=== PATIENT | female | born 1975 | race Two or more races ===

== ENCOUNTER 2018-01-24 07:55 | Observation (INO) | payer OTHER ==
[2018-01-24] MEDS ORDERED: BUPIVACAINE 0.5% 30 ML SDV ONE (08:07)
[2018-01-24] MEDS ORDERED: LR 1,000 ML IV ONE (08:15)
[2018-01-24] MEDS ORDERED: LIDOCAINE 1% 2 ML INJ ID PRN (08:15)
[2018-01-24] MEDS ORDERED: ceFAZolin 2 GM/DEXTROSE 100 ML IV ONE (08:15)
[2018-01-24] MEDS ORDERED: oxyCODONE IR 5 MG TAB PO PRN (08:48)
[2018-01-24] MEDS ORDERED: MIDAZOLAM 2 MG/2 ML VIAL IVP ONE (08:48)
[2018-01-24] MEDS ORDERED: ACETAMINOPHEN 500 MG TAB PO PRN (08:48)
[2018-01-24] MEDS ORDERED: ALBUTEROL 3 ML DEYVIAL IH PRN (08:48)
[2018-01-24] MEDS ORDERED: HYDROCODONE/APAP 5/325 TAB PO PRN (08:48)
[2018-01-24] MEDS ORDERED: DEXAMETHASONE 4 MG/ML VIAL IVP PRN (08:48)
[2018-01-24] MEDS ORDERED: NALOXONE HCL 0.4 MG/ML INJ IVP PRN (08:48)
--- NOTE | 2018-01-24 08:49 | PDANEPAE ---
ANE History of Present Illness Hysterectomy ANE Past Medical History - Cardiovascular History Hx Hypertension: No Hx Arrhythmias: No Hx Chest Pain: No Hx Coronary Artery / Peripheral Vascular Disease: No Hx CHF / Valvular Disease: No Hx Palpitations: No Cardiovascular History Comment: hx of heart murmur as child, has been told it has gone away - Pulmonary History Hx COPD: No Hx Asthma/Reactive Airway Disease: No Hx Recent Upper Respiratory Infection: No Hx Oxygen in Use at Home: No Hx Sleep Apnea: No Sleep Apnea Screening Result - Last Documented: Negative - Neurologic History Hx Cerebrovascular Accident: No Hx Seizures: No Hx Dementia: No - Endocrine History Hx Diabetes: No - Renal History Hx Renal Disorders: No - Liver History Hx Hepatic Disorders: No - Neurological & Psychiatric Hx Hx Neurological and Psychiatric Disorders: Yes Neurological / Psychiatric History Comment: anxiety - Cancer History Hx Cancer: No - Congenital Disorder History Hx Congenital Disorders: No - GI History Hx Gastrointestinal Disorders: No - Other Health History Other Health History: none - Chronic Pain History Chronic Pain: Yes (abd and back pain) - Surgical History Prior Surgeries: myomectomy 2014. lap appy 2011. endometriosis removed 2009 ANE Review of Systems Review of Systems: - Exercise capacity METS (RN): 5 METS ANE Patient History - Allergies Allergies/Adverse Reactions: No Known Allergies Allergy (Verified 01/19/18 16:41) - Home Medications Home Medications: Herbals/Supplements -Info Only 1 ea PO DAILY 01/17/18 [Last Taken 01/23/18] Multivitamins [Multivitamin (*)] 1 each PO DAILY 01/17/18 [Last Taken 01/23/18] [place]-3 Fatty Acids [Fish Oil 1000 mg (*)] 1,000 mg PO DAILY 01/17/18 [Last Taken 01/23/18] buPROPion SR [Wellbutrin 150mg SR (*)] 150 mg PO BID 01/17/18 [Last Taken ] - NPO status NPO Since - Liquids (Date): 01/24/18 NPO Since - Liquids (Time): 06:00 NPO Since - Solids (Date): 01/23/18 NPO Since - Solids (Time): 20:30 - Smoking Hx Smoking Status: Never smoked - Family Anes Hx Family Hx Anesthesia Complications: none ANE Labs/Vital Signs - Vital Signs Blood Pressure: 122/84 Heart Rate: 57 Respiratory Rate: 15 O2 Sat (%): 97 Height: 170.4 cm Weight: 67.7 kg ANE Physical Exam - Airway Neck exam: FROM Mallampati Score: Class 2 Mouth exam: normal dental/mouth exam - Pulmonary Pulmonary: clear to auscultation - Cardiovascular Cardiovascular: regular rate and rhythym - ASA Status ASA Status: II ANE Anesthesia Plan Anesthesia Plan: general endotracheal anesthesia
[2018-01-24] MEDS ORDERED: MIDAZOLAM 2 MG/2 ML VIAL ONE (08:50)
[2018-01-24] MEDS ORDERED: PROPOFOL 200 MG/20 ML VIAL ONE (08:51)
[2018-01-24] MEDS ORDERED: fentaNYL 250 MCG/5 ML INJ ONE (08:51)
[2018-01-24] MEDS ORDERED: ROCURONIUM 50 MG/5 ML VIAL ONE ×2 (08:52→10:15)
[2018-01-24] MEDS ORDERED: ONDANSETRON 4 MG/2 ML VIAL ONE ×3 (08:54→11:55)
[2018-01-24] MEDS ORDERED: DEXAMETHASONE 4 MG/ML VIAL ONE ×2 (08:54)
--- NOTE | 2018-01-24 09:20 | PDGENHP ---
History & Physical Chief Complaint: chronic pelvic pain and menorrhagia History of Present Illness: several year history of heavy painful periods. history of menorrhagia. hx of myomectomy in 2014. symptoms returned. no plans to have kids. requests difinitive therapy with hysterectomy. Pertinent Past, Social, Family History: hx myometctomy. hx anxiety. Relevant Physical Exam: mobile uterus Cardiorespiratory Assessment: regular heart rate. lungs clear
--- NOTE | 2018-01-24 09:46 | GHP ---
DATE OF ADMISSION: 01/24/2018 DATE OF SURGERY: 01/24/2018. PREOPERATIVE DIAGNOSIS: Chronic pelvic pain and menorrhagia. INDICATIONS FOR SURGERY: Patient is a 42-year-old, 1, para 0-0-1-0, who has a several year history of significant midcycle pain and very heavy periods. She underwent an abdominal open myomectomy in 2014 for symptomatic fibroids. At that time, she wanted a hysterectomy. However, the provider talked her out of it because she had not had children yet, and the patient initially did a little bit better following the surgery. However, she has had persistent significantly worsening midcycle pain and heavier periods. She had a repeat ultrasound performed on 01/01/2018, which showed a uterus measuring 9 x 5 x 7 cm with a homogeneous endometrium and a 0.7 x 0.9 x 0.6 intramural fibroid and a second 1.5 x 1.3 x 0.7 cm intramural fibroid. Ovaries were overall unremarkable. Management options were reviewed extensively with the patient. Patient is requesting definitive therapy as she does not want to have any children. We are planning to proceed with a total laparoscopic hysterectomy with bilateral salpingectomy. Risks and benefits of the procedure have been extensively reviewed with the patient including the possibility of needing to open and perform an open procedure. The patient has been properly consented. MEDICAL HISTORY: History of fibroid uterus, menorrhagia, anxiety, depression, endometriosis, and infertility. MEDICATIONS: Wellbutrin. SURGICAL HISTORY: Cold knife conization or LEEP of cervix, diagnostic laparoscopy x 2 for endometriosis, laparoscopic appendectomy and open myomectomy. ALLERGIES: No known drug allergies. SOCIAL HISTORY: The patient is in a long-term relationship. She denies tobacco , alcohol, or drug use. FAMILY MEDICAL HISTORY: Noncontributory. COMPUTER NETWORK SPECIALIST HISTORY: Menarche age 17. Periods every 28 days lasting 5-7 days. They are very heavy and painful. She is a 1, para 0-0-1-0. She has had 1 spontaneous in 2009. She has a remote history of abnormal Pap smear and had cryosurgery. Repeat Pap smears have all been negative. She denies any history of any sexually-transmitted diseases. REVIEW OF SYSTEMS: 10-point review of systems is negative with the exception of the above-mentioned pertinent positives. She has monthly painful periods and heavy painful periods. PHYSICAL EXAMINATION: VITAL SIGNS: Stable. GENERAL APPEARANCE: Alert and oriented x3. PSYCH: Appropriate affect. MUSCULOSKELETAL: Grossly intact. NEURO: Grossly intact. NECK: Mobile and supple. HEART: Rate is regular. LUNGS: Clear to auscultation bilaterally. ABDOMEN: Soft, nondistended, nontender. EXTREMITIES: Reveal no calf tenderness or edema. PELVIC: Reveals a mobile, midposition uterus with no adnexal masses. IMAGING: Pelvic ultrasound as described above. Endometrial biopsy was performed and which was benign. ASSESSMENT/PLAN: 42-year-old, 1, para 0-0-1-0 with chronic pelvic pain and menorrhagia requesting definitive therapy with a total laparoscopic hysterectomy with bilateral salpingectomy. Risks and benefits have been extensively reviewed with the patient. Patient has been properly consented. /[id number]/MODL MTDD
[2018-01-24] MEDS ORDERED: KETOROLAC 30 MG/1 ML SDV ONE (11:15)
--- NOTE | 2018-01-24 11:41 | POSTANESTH ---
Post Anesthetic Evaluation Cardiovascular Status: Normal, Stable Respiratory Status: Normal, Stable Level of Consciousness/Mental Status: Can Participate in Eval, Alert and Oriented Pain Control: Adequate, Prn Tx Ordered Nausea/Vomiting Control: Adequate, Prn Tx Ordered Complications Possibly Related to Anesthesia: None Noted
[2018-01-24] MEDS ORDERED: HYDROmorphONE/DILAUDID 1 MG/ML INJ ONE ×3 (11:44→13:32)
[2018-01-24] MEDS ORDERED: fentaNYL 100 MCG/2 ML INJ ONE (11:44)
[2018-01-24] MEDS: ONDANSETRON 4 MG/2 ML VIAL IVP PRN ×2 (11:49→12:09)
[2018-01-24] MEDS: fentaNYL 100 MCG/2 ML INJ IVP PRN ×2 (11:51→12:06)
[2018-01-24] MEDS: HYDROmorphONE/DILAUDID 1 MG/ML INJ IVP PRN ×7 (11:56→13:32)
[2018-01-24] MEDS ORDERED: POLYETHYLENE GLYCOL 3350 17 GM PKT PO PRN (12:27)
[2018-01-24] MEDS ORDERED: LACTULOSE 20 GM/30 ML UDCUP PO PRN (12:27)
[2018-01-24] MEDS ORDERED: BISACODYL 10 MG SUPP PR PRN (12:27)
[2018-01-24] MEDS ORDERED: ONDANSETRON 4 MG/2 ML VIAL IVP PRN (12:27)
[2018-01-24] MEDS ORDERED: MAGNESIUM HYDROXIDE 30 ML UDCUP PO PRN (12:27)
[2018-01-24] MEDS ORDERED: LR 1,000 ML IV SCH (12:30)
--- NOTE | 2018-01-24 12:33 | POSTOPPROG ---
Post Op Note Date of Operation: 01/24/18 Surgeon: Jessenia Borrego Auto [employer] Condition[employer] Apprentice: ila dahl Anesthesiologist: marie, Anesthesia: GET(General Endotracheal) Pre-op Diagnosis: chronic pelvic pain, menorrhagia Post-op Diagnosis: same and pre op Procedure: total laparoscopic hysterectomy with bilateral salpingectomy Inf/Abcess present in the surg proc area at time of surgery?: No Depth: Organ Space EBL: Minimal Specimen(s): uterus and tubes
[2018-01-24] MEDS ORDERED: PROMETHAZINE HCL 25 MG/ML INJ ONE (12:35)
[2018-01-24] MEDS: PROMETHAZINE HCL 25 MG/ML INJ IV PRN ×2 (12:38→13:34)
[2018-01-24] MEDS ORDERED: METOCLOPRAMIDE 10 MG/2 ML VIAL ONE (12:41)
[2018-01-24] MEDS ORDERED: METOCLOPRAMIDE 10 MG/2 ML VIAL IV ONE (12:45)
[2018-01-24] MEDS ORDERED: OPIUM/BELLADONNA ALKALO SUPP PR ONE (12:45)
[2018-01-24] MEDS: buPROPion SR 150 MG TAB PO SCH ×2 (17:00→21:22)
[2018-01-24] MEDS: KETOROLAC 30 MG/1 ML SDV IVP SCH ×2 (17:14→23:24)
[2018-01-24] MEDS: HYDROCODONE/APAP 5/325 TAB PO PRN ×2 (17:26→21:20)
[2018-01-24] MEDS: SENNOSIDES/DOCUSATE SODIUM TAB PO SCH (21:22)
[2018-01-25] MEDS: HYDROCODONE/APAP 5/325 TAB PO PRN ×3 (01:39→09:32)
[2018-01-25] MEDS: KETOROLAC 30 MG/1 ML SDV IVP SCH ×2 (05:43→11:57)
[2018-01-25 07:50] VITALS: BP 100/62
[2018-01-25] MEDS: buPROPion SR 150 MG TAB PO SCH (09:20)
[2018-01-25] MEDS: SENNOSIDES/DOCUSATE SODIUM TAB PO SCH (09:33)
--- NOTE | 2018-01-25 10:57 | SOAPPROG ---
SOAP Progress Note Assessment/Plan: Assessment: A/P pod# 1 s/p TLH BS -uncomplicated post operative course - discharge instructions and follow up reviewed - rx ibuprofen and norco - follow up in 2 and 6 weeks 01/25/18 10:53 Subjective: patient is doing great! initially was having post operative nausea and feeling very groggy but was seen last night and was tolerating regular diet and ambulating. moreno was removed last night and patient has been voiding without difficulty. small amount of vaginal bleeding noted. had low back pain over night which was relieved with morphine. doing great this am. pain is well controlled. passing gas. voiding without difficulty. ready to go home. very happy she had the surgery and feels better than she expected. Objective: Vital Signs Temp Pulse Resp BP Pulse Ox 36.8 C 48 L 16 100/62 95 01/25/18 07:48 01/25/18 07:48 01/25/18 07:48 01/25/18 07:48 01/25/18 07:48 Laboratory Results 01/25/18 06:30 01/24/18 01/25/18 01/26/18 05:59 05:59 05:59 Intake Total 2400 Output Total 950 Balance 1450 Physical Exam - Physical Exam General Appearance: WD/WN, alert, no apparent distress Neck: non-tender, full range of motion Respiratory: chest non-tender, lungs clear, normal breath sounds Cardiac/Chest: normal peripheral pulses, regular rate, rhythm Abdomen: normal bowel sounds, non-tender, soft Skin: normal color, warm/dry, other (incisions clean dry and intact) Extremities: normal range of motion, non-tender, normal inspection, normal capillary refill Neuro/Psych: no motor/sensory deficits, alert, normal mood/affect, oriented x 3 ICD10 Worksheet Patient Problems: Problems Problem Status Onset Dysmenorrhea Acute Menorrhagia Acute Menorrhagia Acute
[2018-01-25] MEDS ORDERED: IBUPROFEN 600 MG TAB PO SCH (12:30)
--- NOTE | 2018-01-25 17:32 | GDS ---
ADMISSION DIAGNOSES: 1. Chronic pelvic pain. 2. Menorrhagia. 3. Dysmenorrhea. DISCHARGE DIAGNOSES: 1. Chronic pelvic pain. 2. Menorrhagia. 3. Dysmenorrhea. 4. Status post total laparoscopic hysterectomy with bilateral salpingectomy. HISTORY/HOSPITAL COURSE: Patient is a 42-year-old, 1, para 0-0-1-0, who has a longstanding h istory of chronic pelvic pain and menorrhagia. She underwent an abdominal myomectomy previously, but her symptoms have still persisted. She is requesting definitive therapy. Patient was scheduled for total laparoscopic hysterectomy. The patient underwent a total laparoscopic hysterectomy under gene ral anesthesia on 01/24/2018. Surgery was uncomplicated. Patient's initial postoperative course was complicated by nausea and feeling foggy. However, by the evening she had already gotten up, ambulat ed, was voiding without difficulty, and tolerating a regular diet. Her pain was well controlled. Simone nielsen did receive morphine overnight, but had been receiving oral pain medicines including Toradol and in the morning ibuprofen and Demorest. In the morning the patient was tolerating a regular diet, had minim al vaginal bleeding, was voiding without difficulty, and passing gas. Her pain was well controlled. Patient was discharged to home on postoperative day #1 with prescriptions for Demorest and ibuprofen. She was given 20 Demorest and 30 ibuprofen. The patient was instructed to follow up in the office in 2 weeks and again in 6 weeks, to have nothing in her vagina for 9 weeks, and to not lift anything heavi er than 20 pounds for the next few weeks. Patient was to call if she has any issues. /[id number]/MOD
--- NOTE | 2018-01-25 17:37 | GOP ---
DATE OF OPERATION: 01/24/2018 SURGEON: Jessenia Borrego DO PREOPERATIVE DIAGNOSIS: 1. Chronic pelvic pain. 2. Menorrhagia. 3. Fibroid uterus. 4. Dysmenorrhea. POSTOPERATIVE DIAGNOSIS: 1. Chronic pelvic pain. 2. Menorrhagia. 3. Fibroid uterus. 4. Dysmenorrhea. 5. Endometriosis. PROCEDURE PERFORMED: FINDINGS: INDICATIONS: Patient is a 42-year-old, 1, para 0-0-1-0, who has a longstanding history of he nereyda painful periods. She underwent an abdominal open myomectomy in 2014 for a large symptomatic fibr oid uterus. She wanted to have a hysterectomy at that time, but the provider talked her out of it as she does not have any children. She has a long history of infertility and endometriosis and had pre viously tried to get , but was unsuccessful and the patient had decided she did not want to h ave children. Since that time, her periods had gotten temporarily improved, however, they got progre ssively worse and she has to wear a towel when she has her periods, as well as having midcycle signif icant pain. Pelvic ultrasound was obtained which showed 2 small intramural fibroids and overall uter us was slightly heterogeneous. Management options were reviewed with the patient. Patient elected t o proceed with a total laparoscopic hysterectomy with bilateral salpingectomy. Risks and benefits we re extensively reviewed with the patient and the was properly consented. DESCRIPTION OF PROCEDURE: Patient was taken to the operating room with intravenous fluids in place. She was given 2 g of Ancef intravenously and placed on the operating room table in the dorsal supine position where general anesthesia was obtained. She was then repositioned into the dorsal lithotomy position with the Yellofin stirrups. Venodyne's were on her lower extremities and a Rodriguez catheter was then placed. She was then prepped and draped in the normal sterile fashion. Exam under anesthes ia revealed a mobile, retroverted uterus with no adnexal masses. A speculum was then placed in the p atient's vagina and a tenaculum was used to grasp the anterior lip of the cervix. The cervix was dil ated and sounded to 8 cm. The large RUBEN cup and a 6 mm tip were then assembled and the RUBEN placed without difficulty. Attention was then turned to the patient's abdomen where a 5 mm skin incision wa s then made in the umbilicus after being injected with Marcaine. The 5 mm trocar was then advanced i nto the patient's abdomen under direct visualization with the laparoscope. The area underneath the t rocar insertion site was found to be unremarkable. The abdomen was then insufflated with CO2 gas unt il an adequate pneumoperitoneum was achieved. The patient was then placed in Trendelenburg and a 5 m m trocar was then placed in the patient's right lower quadrant after being injected with Marcaine and incised. The trocar was placed under direct visualization with a laparoscope. A 10 mm trocar was t hen placed in the patient's left lower quadrant under direct visualization. The uterus was visualize d, it was noted to have filmy adhesions, most likely consistent with endometriosis and also looked li ke there was adenomyosis present. Both fallopian tubes were adherent to the uterus in a serpentine m oralia and most likely were the cause of her longstanding infertility. The ovaries were overall unrem arkable. The left round ligament was then clamped, cauterized, and transected with the LigaSure. Th e left utero-ovarian ligament was then clamped, cauterized, and transected. The fallopian tube was d issected off the uterus and transected and withdrawn and handed off as a specimen. The anterior and posterior leaflet of the broad ligament were then clamped, cauterized, and transected. The bladder f lap was created anteriorly. The uterine arteries were skeletonized and clamped, cauterized, and cristina sected. The cup of the pelvis over the RUBEN was easily visualized and the bladder was noted to be fa r away from this site. Attention was then turned to the patient's right side, which also the round l igament was then clamped, cauterized, and transected. The utero-ovarian ligament was clamped, cauter ized, and transected. The anterior and posterior leaflet of the broad ligament were then dissected d own and the uterine arteries were skeletonized, clamped, cauterized, and transected. The bladder fla p was created anteriorly. The bladder was dissected well off the colpotomy site. Prior to any of th gen procedures, the ureters were identified and visualized peristalsing bilaterally. The uterus was elevated and a colpotomy was made with the LigaSure posteriorly and then carried through anteriorly o f the uterus. This was done after the RUBEN balloon was inflated for the pneumoperitoneum. The ballo on was then deflated and the RUBEN and uterus were withdrawn through the vagina and a sponge and a javan ve were inserted into the vagina. Hemostasis was obtained on the vaginal cuff. The V-Loc suture was then introduced and the vaginal cuff was closed in a running fashion. A second V-Loc suture was use d to go back to the midway point taking care to make sure both angles of the cuff were closed. The v aginal cuff was hemostatic. The pelvis was irrigated and cleared of all clots and debris. The pedic les were found to be hemostatic. The ureters were identified and found to be peristalsing again. Ov tricia were unremarkable. The upper abdomen was explored and found to be unremarkable. The 10 mm tro car was then removed from the patient's abdomen and a fascial closure device was inserted and the fas fiorella was closed with an 0 Vicryl stitch. The CO2 gas was expressed from the patient's abdomen and the trocars were removed from the patient's abdomen. The skin was then closed with 4-0 Monocryl in a thakur bcuticular fashion. A speculum exam was performed. There was no bleeding noted in the vagina. The patient was returned to the dorsal supine position where she was easily awoken from anesthesia. Sponge, lap, and needle counts were correct x2. The patient was transported to recovery room in stab le condition. /[id number]/MODL
== END 2018-01-25 12:36 | disposition home or self-care (01) ==
LOC: F3N 07:55 → F3E 10:35 → FOB 14:06
PROVIDERS: ADMIT Obstetrics & Gynecology; ATTEND Obstetrics & Gynecology
PROC: 0UT70ZZ Resection of Bilateral Fallopian Tubes, Open Approach (ICD-10-PCS; principal; 2018-01-24 09:15)
PROC: 0UT90ZZ Resection of Uterus, Open Approach (ICD-10-PCS; principal; 2018-01-24 09:15)
DX: R10.2 Pelvic and perineal pain (principal); N92.0 Excessive and frequent menstruation with regular cycle; D25.1 Intramural leiomyoma of uterus; N94.6 Dysmenorrhea, unspecified; F41.9 Anxiety disorder, unspecified
CPT/HCPCS: 58150; G0378; J0690; J1100; J1170; J1885; J2250; J2270; J2405; J2550; J2704; J2765; J3010

== ENCOUNTER 2018-04-06 16:58 | Day surgery (SDC) | payer OTHER ==
[~2018-04-06 16:58] MED LIST: HYDROCODONE/APAP 5/325 TAB PO SCH
[2018-04-06] MEDS ORDERED: LR 1,000 ML IV ONE (17:21)
[2018-04-06] MEDS ORDERED: fentaNYL 100 MCG/2 ML INJ IVP ONE (18:30)
[2018-04-06] MEDS ORDERED: BUPIVACAINE 0.5% 30 ML SDV ONE (19:27)
[2018-04-06] MEDS ORDERED: ceFAZolin 2 GM/DEXTROSE 100 ML IV ONE (19:34)
[2018-04-06] MEDS ORDERED: CEFAZOLIN 2 GM/DEXTROSE/100 ML BAG IV ONE (19:34)
--- NOTE | 2018-04-06 19:34 | PDGENHP ---
History & Physical Chief Complaint: Vaginal cuff dehiscence History of Present Illness: 42 yo now approximately 10 wks s/p TLH/BS for chronic pelvic pain and menorrhagia on 01/24/18 - presented to the office this afternoon with first attempt at intercourse since surgery last night, acutely felt a pop and had new bright red bleeding, vaginal pain, and has since been leaking a clear fluid. Speculum exam in office confirms vaginal cuff dehiscence with no bowel prolapsing through, no s/sx of infx. Discussed options and recommended revision/repair in the OR. Pertinent Past, Social, Family History: TLH/BS on 01/24/18 Relevant Physical Exam: NAD, appears comfortable. Speculum exam in clinic showed approx 2cm defect in central aspect of cuff, healthy/pink adherent structures deep to the opened cuff, likely bowel. No s/sx of infection. Assessment & Plan Assessment: Preop: Revision of vaginal cuff - vaginal cuff dehiscence - 2 grams Ancef - Type & Screen - RBA discussed in clinic and consents signed in preop at bedside. - Plan on home this evening. HERMES
--- NOTE | 2018-04-06 19:37 | PDANEPAE ---
ANE History of Present Illness vaginal cuff rupture s/p laparoscopic hysterectomy on Sep 5 ANE Past Medical History - Cardiovascular History Hx Hypertension: No Hx Arrhythmias: No Hx Chest Pain: No Hx Coronary Artery / Peripheral Vascular Disease: No Hx CHF / Valvular Disease: No Hx Palpitations: No Cardiovascular History Comment: hx of heart murmur as child, has been told it has gone away - Pulmonary History Hx COPD: No Hx Asthma/Reactive Airway Disease: No Hx Recent Upper Respiratory Infection: No Hx Oxygen in Use at Home: No Hx Sleep Apnea: No - Neurologic History Hx Cerebrovascular Accident: No Hx Seizures: No Hx Dementia: No - Endocrine History Hx Diabetes: No Hypothyroid: No Hyperthyroid: No Obesity: no - Renal History Hx Renal Disorders: No - Liver History Hx Hepatic Disorders: No - Neurological & Psychiatric Hx Hx Neurological and Psychiatric Disorders: Yes Neurological / Psychiatric History Comment: anxiety - Cancer History Hx Cancer: No - Congenital Disorder History Hx Congenital Disorders: No - GI History GERD: no Hx Gastrointestinal Disorders: No - Other Health History Other Health History: none - Chronic Pain History Chronic Pain: Yes (abd and back pain) - Surgical History Prior Surgeries: hysterectomy 2016. myomectomy 2014. lap appy 2011. endometriosis removed 2009 ANE Review of Systems Review of Systems: - Exercise capacity METS (RN): 6 METS ANE Patient History - Allergies Allergies/Adverse Reactions: No Known Allergies Allergy (Verified 01/19/18 16:41) - Home Medications Home Medications: Herbals/Supplements -Info Only 1 ea PO DAILY 01/17/18 [Last Taken 04/05/18] Multivitamins [Multivitamin (*)] 1 each PO DAILY 01/17/18 [Last Taken 04/05/18] [place]-3 Fatty Acids [Fish Oil 1000 mg (*)] 1,000 mg PO DAILY 01/17/18 [Last Taken 04/05/18] - NPO status NPO Since - Liquids (Date): 04/06/18 NPO Since - Liquids (Time): 16:45 NPO Since - Solids (Date): 04/06/18 NPO Since - Solids (Time): 12:00 - Anes Hx Anes Hx: no prior problems - Smoking Hx Smoking Status: Never smoked Marijuana use: Yes - Alcohol Use Alcohol Use: Other (3 drinks/week) - Family Anes Hx Family Anes Hx: none Family Hx Anesthesia Complications: none ANE Labs/Vital Signs - Vital Signs Blood Pressure: 146/93 Heart Rate: 73 Respiratory Rate: 16 O2 Sat (%): 98 Height: 172.72 cm Weight: 64.864 kg ANE Physical Exam - Airway Neck exam: FROM Mallampati Score: Class 1 Mouth exam: normal dental/mouth exam - Pulmonary Pulmonary: clear to auscultation - Cardiovascular Cardiovascular: regular rate and rhythym - ASA Status ASA Status: I ANE Anesthesia Plan Anesthesia Plan: general endotracheal anesthesia
[2018-04-06] MEDS ORDERED: MIDAZOLAM 2 MG/2 ML VIAL IVP ONE (19:39)
[2018-04-06] MEDS ORDERED: fentaNYL 100 MCG/2 ML INJ ONE ×2 (19:46→20:38)
[2018-04-06] MEDS ORDERED: PROPOFOL 200 MG/20 ML VIAL ONE (19:46)
[2018-04-06] MEDS ORDERED: DEXAMETHASONE 4 MG/ML VIAL ONE (19:49)
[2018-04-06] MEDS ORDERED: ROCURONIUM 50 MG/5 ML VIAL ONE (19:49)
[2018-04-06] MEDS ORDERED: SILVER NITRATE APPLICATOR 1 APPL TP ONE (19:50)
[2018-04-06] MEDS ORDERED: EPINEPHrine 1 MG/ML INJ ONE (20:16)
[2018-04-06] MEDS ORDERED: BUPIVACAINE/EPI 0.25% 30 ML SDV ONE (20:17)
[2018-04-06] MEDS ORDERED: ONDANSETRON 4 MG/2 ML VIAL ONE (20:24)
[2018-04-06] MEDS ORDERED: NEOSTIGMINE METHYLSULFATE 5 MG/5 ML SYR ONE (20:41)
[2018-04-06] MEDS ORDERED: GLYCOPYRROLATE 0.2 MG/1 ML VIAL ONE (20:41)
[2018-04-06] MEDS ORDERED: HYDROCODONE/APAP 5/325 TAB PO PRN (20:44)
[2018-04-06] MEDS ORDERED: ONDANSETRON 4 MG/2 ML VIAL IVP PRN (20:44)
[2018-04-06] MEDS ORDERED: oxyCODONE IR 5 MG TAB PO PRN (20:44)
[2018-04-06] MEDS ORDERED: ACETAMINOPHEN 500 MG TAB PO PRN (20:44)
[2018-04-06] MEDS ORDERED: fentaNYL 100 MCG/2 ML INJ IVP PRN (20:44)
[2018-04-06] MEDS ORDERED: NALOXONE HCL 0.4 MG/ML INJ IVP PRN (20:44)
--- NOTE | 2018-04-06 21:04 | POSTOPPROG ---
Post Op Note Date of Operation: 04/08/18 Surgeon: Jared Velasquez Van Driver Helper: None Anesthesia: GET(General Endotracheal) Pre-op Diagnosis: Vaginal cuff dehiscence Post-op Diagnosis: Same Procedure: Exam under anesthesia, Revision of vaginal cuff Findings: Cuff completely dehisced, approximately 70% of its total length, vis bowel Inf/Abcess present in the surg proc area at time of surgery?: No EBL: Minimal Complications: None Specimen(s): None
--- NOTE | 2018-04-06 21:06 | SUROPNOTE ---
[facility] Operative Report - Surgery Date of Operation: 04/08/18 Surgeon: Jared Velasquez Account Support Manager: None Anesthesia: GET(General Endotracheal) Pre-op Diagnosis: Vaginal cuff dehiscence Post-op Diagnosis: Same Procedure: Exam under anesthesia, Revision of vaginal cuff Findings: Cuff completely dehisced across approximately 70% of its total length , visible adherent small bowel seen vaginally. No active bleeding, no s/sx of infection. Inf/Abcess present in the surg proc area at time of surgery?: No EBL: Minimal Complications: None Specimen(s): None Technique: Patient was taken to the OR where time-out was performed. Weight-based Ancef was given. She was induced under general anesthesia. She was placed in high lithotomy using Ty stirrups with care to avoid any pressure points and maintain ergonomic positioning. She was prepped and draped in standard fashion. A weighted speculum was placed posteriorly and the anterior vaginal wall retracted with handheld Trev to allow excellent full visualization of the vaginal cuff. Initial inspection confirmed what I saw in the office. Total cuff dehiscence, involving approximately 70% of the length of the cuff. No active bleeding, no pus, no obvious signs of infection. Deep to the opened cuff there was clearly adherent small bowel. I could see pieces of disrupted Vloc suture within the anterior and posterior aspects of the cuff. I began by using a sponge stick to carefully push back any bowel/intra- abdominal contents that were there just deep to the cuff. I also introduced a finger into the abdomen and gently bluntly peeled off some thin adhesions of structures to the cuff. I also bluntly pulled thorugh the rest of the Vloc suture and opened up the rest of the entire cuff, returning to a completely opened state. I double checked to make sure there were no adherent bowel near the cuff before beginning revision. I next freshened up all the edges of the cuff using a scalpel, this was a combination of sharply removing fibrotic scar tissue until I could see pink viable bleeding tissue and also scoring other areas of the cuff to achieve small bleeding and plenty of healthy/viable tissue to approximate. To close I used 8 [id number] sutures of 0-PDS, interrupted, across the length of the incision, taking care to take large, substantial bites of anterior and posterior. At the conclusion the cuff was completely closed with no bleeding. I injected 10cc of 0.25% bupivicaine with epi along the cuff before finishing. She was straight cath'd at the conclusion of the case for 100cc clear urine. All instruments removed and case concluded.
[2018-04-06] MEDS ORDERED: HYDROCODONE/APAP 5/325 TAB ONE (21:24)
[2018-04-06 22:17] VITALS: BP 105/77
--- NOTE | 2018-04-06 23:45 | POSTANESTH ---
Post Anesthetic Evaluation Cardiovascular Status: Normal, Stable Respiratory Status: Normal, Stable Level of Consciousness/Mental Status: Can Participate in Eval Pain Control: Adequate, Prn Tx Ordered Nausea/Vomiting Control: Adequate, Prn Tx Ordered Complications Possibly Related to Anesthesia: None Noted
== END 2018-04-06 22:50 | disposition home or self-care (01) ==
LOC: FSGY 16:58
PROVIDERS: ATTEND Obstetrics & Gynecology
PROC: 0UQG7ZZ Repair Vagina, Via Natural or Artificial Opening (ICD-10-PCS; principal; 2018-04-06 18:30)
DX: T81.32XA Disruption of internal operation (surgical) wound, not elsewhere classified, initial encounter (principal); Z90.710 Acquired absence of both cervix and uterus; Z90.79 Acquired absence of other genital organ(s); Y83.6 Removal of other organ (partial) (total) as the cause of abnormal reaction of the patient, or of later complication, without mention of misadventure at the time of the procedure
CPT/HCPCS: J0171; J0690; J1100; J2250; J2270; J2405; J2704; J2710; J3010